=== PATIENT | female | born 1965 | race African-American/Black ===

== ENCOUNTER 2018-03-23 11:20 | Emergency (ER) | payer MEDICAID ==
[~2018-03-23] VITALS: Ht 157.5 cm; Wt 113.4 kg
[~2018-03-23 11:20] MED LIST: NKM; PERMETHRIN60 GM TOPIC
[2018-03-23 11:32] VITALS: BP 155/98
[2018-03-23 11:55] VITALS: BP 143/78
--- NOTE | 2018-03-23 12:59 | Emergency Room Report ---
History of Present Illness General Chief Complaint: Skin Rash/Abscess Source: Patient Present Illness HPI 53-year-old female presents ED for evaluation. Patient states there is a knot on her left middle finger for the last 2 weeks. Denies any trauma or injury. Denies any pain. Denies any discharge. Denies any difficulty with range of motion. No other aggravating relieving factors. Denies any other associated symptoms Allergies: Coded Allergies: MILK (Verified Adverse Reaction, Mild, Hives, 12/24/12) Patient History Past Medical History: HTN Past Surgical History: none Pertinent Family History: none Social History: Denies: smoking, alcohol use, drug use Last Menstrual Period: 03/11/18 Now: No Immunizations: UTD Reviewed Nursing Documentation: PMH: Agreed; PSxH: Agreed Nursing Documentation-PMH Past Medical History: No History, Except For Hx Cardiac Problems: No - arthritis, osteoarthritis, legally blind Hx Hypertension: Yes Review of Systems All Other Systems: negative except mentioned in HPI Physical Exam Vital Signs Date Time Temp Pulse Resp B/P (MAP) Pulse Ox O2 Delivery O2 Flow Rate FiO2 03/23/18 11:25 97.7 85 18 155/98 96 Room Air 97.7 Sp02 EP Interpretation: reviewed, normal General Appearance: no apparent distress, alert, GCS 15, non-toxic Head: normocephalic Eyes: bilateral eye normal inspection, bilateral eye PERRL ENT: normal ENT inspection Neck: normal inspection Respiratory: normal inspection Cardiovascular #1: normal peripheral pulses Gastrointestinal: normal inspection Rectal: deferred Genitourinary: no CVA tenderness Musculoskeletal: other - nodular swelling to extensor surface L middle finger. no fluctuance or discharge Neurologic: alert, oriented x3, responsive, motor strength/tone normal, sensory intact, speech normal Psychiatric: normal inspection Skin: normal inspection Lymphatic: normal inspection Medical Decision Making Diagnostic Impression: Primary Impression: Cyst of finger ER Course Hospital Course 53-year-old female presents to ED complaining of left middle finger swelling. no trauma Differential diagnoses include: Fracture, dislocation, sprain, contusion, bursitis Clinical course Patient placed on stretcher. After initial history, physical exam reveals an middle-aged female in no acute distress. On exam there is a nodular swelling to the extensor surface of the left middle finger. Nontender. No erythema or induration. Full range of motion noted to the finger. Likely ganglion cyst versus lipoma. Discussed findings with patient. No emergent treatment indicated. We'll provide ortho referral for outpatient evaluation and possible excision Diagnosis - cyst of finger stable and discharged to home. Followup with ortho/hand Return to ED if symptoms recur or worsen Last Vital Signs Date Time Temp Pulse Resp B/P (MAP) Pulse Ox O2 Delivery O2 Flow Rate FiO2 03/23/18 11:55 98.0 78 20 143/78 97 Room Air 97.7 Status: improved Disposition: HOME, SELF-CARE Condition: Stable Referrals: NOT CHOSEN IPA/,REFERRING H [facility] Patient Instructions: Ganglion Cyst Christopher Guerrero MD Mar 23, 2018 12:59
== END 2018-03-23 11:56 | disposition home or self-care (01) ==
LOC: EMR 11:44
DX: L72.9 Follicular cyst of the skin and subcutaneous tissue, unspecified (principal); I10 Essential (primary) hypertension; H54.8 Legal blindness, as defined in USA
CPT/HCPCS: 99284